=== PATIENT | female | born 1970 | race Caucasian/White ===

== ENCOUNTER 2020-09-28 10:57 | Emergency (ER) | payer OTHER, SELFPAY ==
[2020-09-28 10:59] VITALS: BP 143/77; PULSE 82; RESP 16; TEMP 35.7; O2SAT 97; BMI 26.9
--- NOTE | 2020-09-28 11:10 | PC.NURSE ---
Pt NAD, resp reg and even, ls cta bilaterally. No evidence of mucosal swelling. MD to bedside for eval. Plan for IV steroids, pepcid, and to monitor. spo2 98% on room air.
--- NOTE | 2020-09-28 11:16 | ED_ITS ---
HPI - Allergic Reaction General Chief complaint: Allergic Reaction Stated complaint: Stung by bee Time Seen by Provider: 09/28/20 11:11 Source: patient Mode of arrival: ambulatory Limitations: no limitations History of Present Illness HPI narrative: 50 yo female with prior reactions to bee stings (not true anaphylaxis no hives, rash, itching, swelling, respiratory or GI complaints but more of what she describes as full body electrical impulses and restlnessness) she used to have an epi pen, was stung by yellow jacket in L wrist [employer] while gardening, experiencing these neurologic like complaints now MD complaint: other Onset (ago): minute(s) Exposure: insect bite (yellow jacket) Symptoms: other (feels electrical impulses, shakiness) Severity: mild Treatment prior to arrival: none Previous Allergic Reaction History: other (see above) Related Data Previous Rx's Medication Instructions Recorded epinephrine 0.3 mg IM Q10M PRN #2 ea 09/28/20 prednisone 40 mg PO DAILY 3 Days #6 tab 09/28/20 Allergies Allergy/AdvReac Type Severity Reaction Status Date / Time bee pollen [BEE STINGS] Allergy Severe UNKNOWN Unverified 11/30/19 19:07 gluten [GLUTEN] Allergy Unknown UNKNOWN Unverified 11/30/19 19:07 Review of Systems Review of Systems: Constitutional : No Fever, No Chills, pos sweats ENT/Mouth : no oral swelling, No Hoarseness, No Swallowing Difficulty Eyes: No Eye Pain, No Swelling, No Redness Cardiovascular : No Chest Pain, No SOB Respiratory : No Cough, No Sputum, No Wheezing, No Smoke Exposure, No Dyspnea Gastrointestinal : No Nausea, No Vomiting, No Diarrhea, No abdominal Pain Genitourinary : No Dysuria, No Urinary Frequency, No Hematuria Musculoskeletal : No joint pain, No Myalgias, No Joint Swelling Skin : No Skin Lesions, no rash, pos skin bite Neuro : No Weakness, No Numbness, No Headache Psych : pos Anxiety/Panic, No Depression Heme/Lymph: No Bruising, No Lymphadenopathy Endocrine : No Polyuria, No Polydipsia All other systems reviewed and are negative [facility] Past Medical History Attestation statement: The following information was validated with the patient. Medical History No known health problems Social History Social History (Updated 09/28/20 @ 11:30 by Alice Paul DO) Patient Tobacco Use Status: Never used Tobacco Use of substances other than those prescribed or required for medical reasons: No Advance Directives: No Advance Directives Information Provided: Yes Patient : No Physical Exam Vital Signs: Vital Signs: Last Vital Signs Temp 96.3 F L 09/28/20 10:59 Pulse 63 09/28/20 11:26 Resp 15 09/28/20 11:26 BP 143/77 H 09/28/20 10:59 Pulse Ox 98 09/28/20 11:26 Body Mass Index 26.9 Appearance: Alert. Oriented X3. No acute distress. Anxious Eyes: Pupils equal, round and reactive to light. ENT: Pharynx normal. Neck: Normal inspection. Neck supple. CVS: Normal heart rate and rhythm. Pulses normal. Respiratory: No respiratory distress. Breath sounds normal. Abdomen: Soft and non-tender. Skin: Skin warm and dry. Normal skin color. Normal skin turgor. L wrist small bite with mild erythema noted, no stinger in place Extremities: No lower extremity edema. No calf ttp Neuro: Oriented X 3. No motor deficit. No sensory deficit. Course Course Course Narrative: feels better, no need for epi in 1.5 hours stable for DC MDM - Allergic Reaction MDM Narrative Medical decision making narrative: 50 yo female with prior reactions to bee stings (not true anaphylaxis no hives, rash, itching, swelling, respiratory or GI complaints but more of what she describes as full body electrical impulses and restlessness) she used to have an epi pen, was stung by yellow jacket in L wrist [employer] while gardening, experiencing these neurologic like complaints now at this time will give pepcid, benadryl and IV steroids, observe for any worsening of symptoms Discharge Plan Discharge Clinical Impression: Bee sting Qualifiers: Encounter type: initial encounter Injury intent: accidental or unintentional Qualified Code(s): T63.441A - Toxic effect of venom of bees, accidental (unintentional), initial encounter Patient Disposition: Home, Self-Care Instructions: Insect Bite or Sting (ED) Additional Instructions: return to ED for any worsening symptoms or concerns Prescriptions: New prednisone 20 mg tablet 40 mg PO DAILY 3 Days Qty: 6 RF: 0 epinephrine 0.3 mg/0.3 mL auto-injector 0.3 mg IM Q10M PRN (Reason: anaphylaxis) Qty: 2 RF: 0
[2020-09-28] MEDS: diphenhydrAMINE HCL 50 MG/ML VIAL 25 MG IVPUSH (11:18)
[2020-09-28] MEDS: methylPREDNISolone Sod Succ 125 MG/2 ML VIAL IVPUSH (11:18)
[2020-09-28] MEDS: 0.9 % Sodium Chloride 1,000 ML 999 ML IVCONT (11:18)
[2020-09-28] MEDS: Famotidine/PF 20 MG/2 ML VIAL IVPUSH (11:18)
[2020-09-28 11:26] VITALS: PULSE 63; RESP 15; O2SAT 98
--- NOTE | 2020-09-28 11:45 | PC.NURSE ---
Pt continues to rest quietly without an increase in symptoms. resp reg and even, sinus on monitor.
== END 2020-09-28 12:25 | disposition home or self-care (01) ==
PROVIDERS: Emergency Provider Emergency Medicine
DX: T63.441A Toxic effect of venom of bees, accidental (unintentional), initial encounter (principal); Y92.007 Garden or yard of unspecified non-institutional (private) residence as the place of occurrence of the external cause
CPT/HCPCS: 96361; 96374; 96375; 99284; J1200; J2930